=== PATIENT | male | born 1985 | race African-American/Black ===

== ENCOUNTER 2021-12-03 04:35 | Emergency (ER) | payer MEDICAID ==
[2021-12-03] MEDS ORDERED: Ibuprofen 800 MG TAB ONE (06:49)
== END 2021-12-03 07:50 | disposition home or self-care (01) ==
LOC: ERS 04:35
DX: K02.9 Dental caries, unspecified (principal); G40.909 Epilepsy, unspecified, not intractable, without status epilepticus
CPT/HCPCS: 99282

== ENCOUNTER 2023-09-23 10:12 | Emergency (ER) | payer SELFPAY | END 2023-09-23 10:33 | disposition home or self-care (01) | LOC: ERS 10:12 | DX: A69.1 Other Vincent's infections (principal); G40.909 Epilepsy, unspecified, not intractable, without status epilepticus; Z79.899 Other long term (current) drug therapy | CPT/HCPCS: 99282 ==